=== PATIENT | male | born 1950 | race African-American/Black ===

== ENCOUNTER 2019-04-29 12:44 | Inpatient (IN) ==
[2019-04-29 13:56] LABS: Basophils % 0.2 % (0.0-0.8); Eosinophils # 0.2 10*3/uL (0.0-0.87); Eosinophils % 1.8 % (0.00-10.9); Hemoglobin 13.6 GM/DL (14.0-18.0); Immature Granulocytes % 0.3 %; Immature Granulocytes Absolute 0.03 #; Lymphocytes # 3.1 10*3/uL (1.4-4.0); Lymphocytes % 29.8 % (21.2-54.2); Mean Corpuscular HGB Conc 31.6 GM/DL (32-36); Mean Corpuscular Volume 91.5 FL (87-102); Mean Platelet Volume 9.3 FL (9.6-12.0); Monocytes % 11.6 % (1.7-12.7); Neutrophils % 56.3 % (38.7-73.9); Platelet Count 217 T/CUMM (130-400); Red Cell Distribution Width 12.7 % (9.3-17.3); White Blood Count 10.4 T/CUMM (4-12)
[2019-04-29] MEDS ORDERED: ONDANSETRON 4 MG/2 ML VIAL ONE (14:56)
[2019-04-29] MEDS ORDERED: ONDANSETRON 4 MG/2 ML VIAL IV STA (15:35)
[2019-04-29] MEDS ORDERED: SODIUM CHLORIDE 0.9% 1,000 ML IV STA (15:35)
[2019-04-29 15:45] LABS: Albumin 3.2 G/DL (3.4-5.0); Bilirubin,Total 0.9 MG/DL (0.2-1.0); Osmolality,Calculated 267.1 MOS/KG (273-304); Total Protein 8.5 G/DL (6.4-8.3)
[2019-04-29 16:33] LABS: Apearance,Urine CLEAR (Clear); Bilirubin,Urine Negative (Negative); Blood, Urine Moderate mg/dL (Negative); Glucose,Urine (UA) Negative (Negative); Hyaline Casts,Urine 1 /LPF (0-3); Ketones,Urine 20 mg/dL (Negative); Mucus,Urine Many /LPF (Occasional); Nitrite,Urine Negative (Negative); Protein,Urine Negative; RBC,Urine 13 /HPF (0-4); Squamous Epithelial Cell,Urine Occasional /HPF (0-10); Urine Color Amber (Yellow); Urine Specific Gravity 1.024 (1.001-1.035); WBC,Urine 8 /HPF (0-6)
[2019-04-29] MEDS ORDERED: ONDANSETRON 4 MG/2 ML VIAL IV PRN (16:47)
[2019-04-29] MEDS ORDERED: ACETAMINOPHEN 325 MG TABLET PO PRN (16:47)
[2019-04-29] MEDS: DEXTROSE 5% LACTATED RINGERS 1,000 ML IV SCH (18:35)
[2019-04-30] MEDS: DEXTROSE 5% LACTATED RINGERS 1,000 ML IV SCH ×3 (01:47→16:57)
[2019-04-30] MEDS: MORPHINE 4 MG/1 ML VIAL IV PRN ×4 (02:11→21:11)
[2019-04-30 05:47] LABS: Basophils % 0.2 % (0.0-0.8); Eosinophils # 0.2 10*3/uL (0.0-0.87); Eosinophils % 2.8 % (0.00-10.9); Hematocrit 34.4 VOL% (42.0-52.0); Immature Granulocytes % 0.2 %; Immature Granulocytes Absolute 0.01 #; Lymphocytes # 1.9 10*3/uL (1.4-4.0); Lymphocytes % 30.1 % (21.2-54.2); Mean Corpuscular Volume 90.1 FL (87-102); Mean Platelet Volume 9.1 FL (9.6-12.0); Monocytes % 13.5 % (1.7-12.7); Neutrophils % 53.2 % (38.7-73.9); Platelet Count 175 T/CUMM (130-400); Red Blood Count 3.82 MC/CUMM (3.8-5.5); Red Cell Distribution Width 12.6 % (9.3-17.3); White Blood Count 6.4 T/CUMM (4-12)
[2019-04-30 06:15] LABS: Calcium 8.2 MG/DL (8.5-10.1)
[2019-04-30] MEDS: PANTOPRAZOLE 40 MG TABLET PO SCH (08:56)
[2019-04-30] MEDS: ENOXAPARIN 40 MG/0.4 ML SYRINGE SUBCUT SCH (08:57)
[2019-04-30] MEDS: POTASSIUM CHLORIDE RIDER 10 MEQ in PREMIX 1 EACH IV PRN ×6 (09:56→23:58)
[2019-04-30] MEDS ORDERED: TRIAMTERENE/HCTZ 37.5-25 MG TABLET PO PRN (11:13)
[2019-04-30] MEDS ORDERED: SKIN HEALING OINT (AQUAPHOR) 50 GM TUBE TOP PRN (12:19)
[2019-04-30] MEDS: ALPRAZolam 0.5 MG TABLET PO SCH (21:13)
[2019-05-01] MEDS: DEXTROSE 5% LACTATED RINGERS 1,000 ML IV SCH ×3 (02:46→19:08)
[2019-05-01] MEDS: MORPHINE 4 MG/1 ML VIAL IV PRN ×2 (04:17→10:02)
[2019-05-01] MEDS: ENOXAPARIN 40 MG/0.4 ML SYRINGE SUBCUT SCH (09:54)
[2019-05-01] MEDS: PANTOPRAZOLE 40 MG TABLET PO SCH (10:03)
[2019-05-01] MEDS: ALPRAZolam 0.5 MG TABLET PO SCH ×2 (10:03→21:53)
[2019-05-02] MEDS: DEXTROSE 5% LACTATED RINGERS 1,000 ML IV SCH ×3 (03:54→21:00)
[2019-05-02] MEDS: PANTOPRAZOLE 40 MG TABLET PO SCH (10:19)
[2019-05-02] MEDS: ENOXAPARIN 40 MG/0.4 ML SYRINGE SUBCUT SCH (10:20)
[2019-05-02] MEDS: ALPRAZolam 0.5 MG TABLET PO SCH ×2 (10:20→20:55)
[2019-05-03] MEDS: DEXTROSE 5% LACTATED RINGERS 1,000 ML IV SCH ×2 (05:53→09:00)
[2019-05-03] MEDS: PANTOPRAZOLE 40 MG TABLET PO SCH (10:13)
[2019-05-03] MEDS: ALPRAZolam 0.5 MG TABLET PO SCH (10:13)
[2019-05-03] MEDS: ENOXAPARIN 40 MG/0.4 ML SYRINGE SUBCUT SCH (10:13)
[2019-05-03 11:53] VITALS: BP 120/69
== END 2019-05-03 15:25 | disposition home health service (06) | DRG 390 ==
LOC: N.ED 12:44 → N.EDINP 16:47 → N.3E 17:27
PROVIDERS: ADMIT Surgery; ATTEND Surgery

== ENCOUNTER 2019-10-19 02:39 | Observation (INO) ==
[2019-10-19] MEDS ORDERED: SODIUM CHLORIDE 0.9% 1,000 ML IV STA (03:01)
[2019-10-19 03:07] LABS: Basophils % 0.8 % (0.0-0.8); Eosinophils # 0.2 10*3/uL (0.0-0.87); Eosinophils % 4.3 % (0.00-10.9); Hematocrit 34.3 VOL% (42.0-52.0); Hgb & Hct Comparison OK; Immature Granulocytes % 0.4 %; Immature Granulocytes Absolute 0.02 #; Lymphocytes # 2.9 10*3/uL (1.4-4.0); Lymphocytes % 54.5 % (21.2-54.2); Mean Corpuscular HGB Conc 32.1 GM/DL (32-36); Mean Corpuscular Hemoglobin 29 PG (27-34); Mean Corpuscular Volume 89.8 FL (87-102); Monocytes # 0.6 10*3/uL (0.11-0.8); Monocytes % 10.6 % (1.7-12.7); Neutrophils # 1.6 10*3/uL (1.4-7.4); Neutrophils % 29.4 % (38.7-73.9); Platelet Count 196 T/CUMM (130-400)
[2019-10-19 03:44] LABS: Alanine Aminotransferase 22 U/L (16-61); Albumin/Globulin Ratio 0.6 RATIO (1.1-2.2); Alkaline Phosphatase 173 U/L (45-117); Anion Gap 8.5 MMOL/L (5.0-15.0); Aspartate Amino Transferase 19 U/L (0-37); Bilirubin,Total < 0.39 MG/DL (0.2-1.0); Blood Urea Nitrogen 17 MG/DL (7-18); Carbon Dioxide 23 MMOL/L (21-32); Chloride 110 MMOL/L (98-107); Estimated Glom Filtration Rate 120 ML/MIN; Globulin 4.4 G/DL (2.3-3.5); Magnesium 1.9 MG/DL (1.8-2.4); Osmolality,Calculated 276.7 MOS/KG (273-304); Potassium 3.5 MMOL/L (3.5-5.1); Sodium 138 MMOL/L (136-145)
[2019-10-19 03:47] LABS: Eosinophils 7 % (0-10); Lymphocytes 53 % (20-55); Monocytes 6 % (2-15); Segmented Neutrophils 34 % (50-85); Total Cells Counted 100
[2019-10-19 03:48] LABS: Hypochromasia Slight; Platelet Estimate Normal
[2019-10-19] MEDS ORDERED: KETOROLAC 30 MG/1 ML VIAL IV STA (04:02)
[2019-10-19] MEDS ORDERED: GLUCAGON 1 MG VIAL IM PRN (04:51)
[2019-10-19] MEDS ORDERED: NITROGLYCERIN SL 0.4 MG TABLET SL PRN (04:51)
[2019-10-19] MEDS ORDERED: ONDANSETRON 4 MG/2 ML VIAL IV PRN (04:51)
[2019-10-19] MEDS ORDERED: DEXTROSE 50% 25 GM/50 ML VIAL IV PRN (04:51)
[2019-10-19 06:07] LABS: VLDL CHOLESTEROL 12.6 MG/DL
[2019-10-19 06:08] LABS: Creatine Kinase MB < 1.0 NG/ML (0.5-3.6); Troponin I < 0.015 NG/ML (0.00-0.045)
[2019-10-19 06:10] LABS: Barbiturates Screen,Urine Negative (Negative); Cannabinoid Screen,Urine Negative (Negative); Phencyclidine Screen,Urine Negative (Negative)
[2019-10-19 06:11] LABS: Was Specimen Discarded? Yes
[2019-10-19] MEDS ORDERED: TRIAMTERENE/HCTZ 37.5-25 MG TABLET PO PRN (08:58)
[2019-10-19 09:45] LABS: Creatine Kinase MB < 1.0 NG/ML (0.5-3.6); Troponin I < 0.015 NG/ML (0.00-0.045)
[2019-10-19] MEDS ORDERED: ASPIRIN 325 MG TABLET ONE (09:52)
[2019-10-19] MEDS: tiZANidine 4 MG TABLET PO SCH ×4 (09:56→23:55)
[2019-10-19] MEDS: POTASSIUM CHLORIDE 20 MEQ TABLET PO SCH (09:57)
[2019-10-19] MEDS ORDERED: KETOROLAC 30 MG/1 ML VIAL IV ONE (20:15)
[2019-10-20 08:54] LABS: Basophils # 0.1 10*3/uL (0.0-0.2); Basophils % 0.9 % (0.0-0.8); Eosinophils # 0.2 10*3/uL (0.0-0.87); Eosinophils % 4.3 % (0.00-10.9); Hematocrit 37.1 VOL% (42.0-52.0); Hemoglobin 11.8 GM/DL (14.0-18.0); Hgb & Hct Comparison OK; Immature Granulocytes % 0.2 %; Immature Granulocytes Absolute 0.01 #; Lymphocytes # 2.1 10*3/uL (1.4-4.0); Lymphocytes % 39.9 % (21.2-54.2); Mean Corpuscular HGB Conc 31.8 GM/DL (32-36); Mean Corpuscular Hemoglobin 29 PG (27-34); Mean Corpuscular Volume 91.8 FL (87-102); Monocytes # 0.3 10*3/uL (0.11-0.8); Monocytes % 6.2 % (1.7-12.7); Neutrophils # 2.6 10*3/uL (1.4-7.4); Neutrophils % 48.5 % (38.7-73.9); Platelet Count 171 T/CUMM (130-400)
[2019-10-20] MEDS ORDERED: ASPIRIN EC 325 MG TABLET PO SCH (09:00)
[2019-10-20] MEDS: POTASSIUM CHLORIDE 20 MEQ TABLET PO SCH (09:05)
[2019-10-20] MEDS: tiZANidine 4 MG TABLET PO SCH (09:06)
[2019-10-20 09:25] LABS: Anion Gap 10.2 MMOL/L (5.0-15.0); Osmolality,Calculated 269.2 MOS/KG (273-304); Potassium 4.2 MMOL/L (3.5-5.1)
[2019-10-20 09:37] LABS: Basophils % 0.7 % (0.0-0.8); Eosinophils # 0.2 10*3/uL (0.0-0.87); Eosinophils % 3.3 % (0.00-10.9); Hemoglobin 12.7 GM/DL (14.0-18.0); Hgb & Hct Comparison OK; Immature Granulocytes % 0.2 %; Immature Granulocytes Absolute 0.01 #; Lymphocytes # 2.1 10*3/uL (1.4-4.0); Lymphocytes % 39.3 % (21.2-54.2); Mean Corpuscular HGB Conc 31.8 GM/DL (32-36); Mean Corpuscular Hemoglobin 29 PG (27-34); Mean Corpuscular Volume 90.7 FL (87-102); Monocytes # 0.5 10*3/uL (0.11-0.8); Monocytes % 8.6 % (1.7-12.7); Neutrophils # 2.6 10*3/uL (1.4-7.4); Neutrophils % 47.9 % (38.7-73.9); Platelet Count 189 T/CUMM (130-400)
[2019-10-20 10:54] LABS: Apearance,Urine CLEAR (Clear); Bilirubin,Urine Negative (Negative); Blood, Urine Moderate mg/dL (Negative); Culture Indicated,Urine Not Indicated; Glucose,Urine (UA) Negative (Negative); Ketones,Urine Negative (Negative); Mucus,Urine Occasional /LPF (Occasional); Nitrite,Urine Negative (Negative); Protein,Urine Negative; RBC,Urine 4 /HPF (0-4); Squamous Epithelial Cell,Urine Occasional /HPF (0-10); Urine Color Yellow (Yellow); Urine Specific Gravity 1.016 (1.001-1.035); WBC,Urine 3 /HPF (0-6)
[2019-10-20 11:31] VITALS: BP 95/57
[2019-10-20] MEDS ORDERED: PNEUMOCOCCAL VACCINE (13 VALENT) 0.5 ML SYRINGE IM ONE (15:08)
== END 2019-10-20 13:13 | disposition home or self-care (01) ==
LOC: EDUNIT# → EDBD → N.EDINP 02:39 → N.ED 02:39 → N.TELES 14:40
PROVIDERS: ADMIT Internal Medicine; ATTEND Internal Medicine